=== PATIENT | female | born 1975 ===

== ENCOUNTER 2018-02-22 13:09 | Emergency (ER) | payer SELFPAY ==
[2018-02-22 13:19] VITALS: BP 191/99
[2018-02-22 14:17] LABS: BUN/Creatinine Ratio 16; Blood Urea Nitrogen 11 mg/dL (7-17); Hemolysis Index 48
== END 2018-02-22 13:15 | disposition left against medical advice (07) ==
LOC: ED 13:09
DX: I10 Essential (primary) hypertension (principal); Z53.21 Procedure and treatment not carried out due to patient leaving prior to being seen by health care provider
CPT/HCPCS: 80048